=== PATIENT | female | born 1995 | race Caucasian/White ===

== ENCOUNTER 2016-08-20 07:47 | Emergency (ER) | payer OTHER ==
[~2016-08-20] VITALS: Ht 144.8 cm; Wt 55.5 kg
[~2016-08-20 07:47] MED LIST: ADRENACLICK1 MG/ML IM; ATIVAN 0.50.5 MG/TAB PO; BCP TD; CEPHALEXIN500 M1 PO; DOXYCYCLINE 10100 MG PO; LEXAPRO 10MG10 MG PO; LEXAPRO20 MG PO; LOMOTIL 0.025 M1 TAB PO; MONONESSA 35 MC1 TA1 PO; PEN-VEE K500 MG PO; PHENERGAN 25 TA25 MG PO; PHENERGAN25 MG RC; PREDNISONE20 MG PO; PROVENTIL0.09 MG/A1 IH; RANITIDINE150 MG PO; SINGULAIR10 MG PO; WELLBUTRIN 100100 MG PO; ZOFRAN 4MG T4 MG/TAB PO; ZYRTEC 10MG10 MG PO
[2016-08-20 07:48] VITALS: BP 131/73
[2016-08-20] MEDS ORDERED: BENADRYL25 M2 PO (08:35)
[2016-08-20] MEDS ORDERED: ZOFRAN ODT4 MG PO (09:20)
[2016-08-20] MEDS ORDERED: PHENERGAN W/CO120 M1 PO (09:20)
[2016-08-20 10:20] VITALS: PULSE 80; TEMP 98.2
== END 2016-08-20 09:48 | disposition home or self-care (01) ==
LOC: COL.ER 07:47
DX: J11.1 Influenza due to unidentified influenza virus with other respiratory manifestations (principal)
CPT/HCPCS: J1885; J2405; J7030

== ENCOUNTER 2017-07-22 11:07 | Emergency (ER) | payer OTHER ==
[~2017-07-22] VITALS: Ht 144.8 cm; Wt 58.2 kg
[~2017-07-22 11:07] MED LIST changes: +BENADRYL25 M2 PO; +PHENERGAN W/CO120 M1 PO; +SINGULAIR 110 MG/TAB PO; -SINGULAIR10 MG PO; +ZOFRAN ODT4 MG PO
[2017-07-22 11:17] VITALS: TEMP 98.8
[2017-07-22 13:00] LABS: BASO # 0.1 (0.0-0.2); BASO % 0.8 % (0.0-2.0); EOS # 0.3 (0.0-0.7); EOS % 4.5 % (0-4.0); GRAN % 61.5 % (42.2-75.2); HEMATOCRIT 40.6 % (37.0-47.0); HEMOGLOBIN 13.3 g/dl (12.5-16.0); LYMPH # 1.8 (1.2-3.4); LYMPH % 27.1 % (20.0-51.0); MEAN CELL VOLUME 91 fl (80.0-100.0); MEAN CORPUSCULAR HEMOGLOBIN 30 pg (27.0-31.0); MEAN CORPUSCULAR HGB CONC 33 g/dl (33.0-37.0); MEAN PLATELET VOLUME 10.1 fl (7.4-10.4); MONO # 0.4 (0.1-0.6); MONO % 5.9 % (1.7-9.3); PLATELET COUNT 265 K/mm3 (130-400); RED BLOOD COUNT 4.48 M/mm3 (4.10-5.30); REDCELL DISTRIBUTION WIDTH-CV 12.8 % (11.5-14.5)
[2017-07-22 13:10] LABS: ALBUMIN 4.3 gm/dL (3.5-5.0); BILIRUBIN,TOTAL 0.4 mg/dL (0.0-1.0); CALCIUM 9.1 mg/dL (8.4-10.2); CREATININE, serum 0.93 mg/dL (0.52-1.25); POTASSIUM 4.1 mmol/L (3.4-5.0); TOTAL PROTEIN 6.9 gm/dL (6.4-8.2)
[2017-07-22 13:34] LABS: HIV 1/2 Antibodies Non-Reactive; HIV-1p24 Antigen Non-Reactive
[2017-07-22 15:08] VITALS: BP 117/65; PULSE 67
[2017-07-22 23:30] LABS: HEPATITIS B SURFACE ANTIBODY 2.7 (())
== END 2017-07-22 15:24 | disposition home or self-care (01) ==
LOC: COL.ER 11:07
PROVIDERS: Emergency Medicine
DX: Z04.41 Encounter for examination and observation following alleged adult rape (principal); Z91.010 Allergy to peanuts; Z88.2 Allergy status to sulfonamides; Z91.018 Allergy to other foods; Y92.039 Unspecified place in apartment as the place of occurrence of the external cause
CPT/HCPCS: J0696

== ENCOUNTER 2018-04-08 08:11 | Outpatient (RCR) | payer OTHER | END 2018-06-09 | disposition home or self-care (01) | LOC: WSOH | DX: S16.1XXA Strain of muscle, fascia and tendon at neck level, initial encounter (principal); R07.89 Other chest pain; M54.5 Low back pain; R51 Headache; R42 Dizziness and giddiness; V89.2XXA Person injured in unspecified motor-vehicle accident, traffic, initial encounter; Y92.410 Unspecified street and highway as the place of occurrence of the external cause; Y99.0 Civilian activity done for income or pay; Z79.899 Other long term (current) drug therapy ==

== ENCOUNTER 2021-11-05 21:41 | Emergency (ER) | payer OTHER, BC ==
[~2021-11-05] VITALS: Ht 144.8 cm; Wt 63.6 kg
[2021-11-05 21:54] VITALS: TEMP 98.1
[2021-11-05] MEDS ORDERED: NORCO 325 MG-51 TAB PO (23:18)
[2021-11-05 23:38] VITALS: BP 112/69; PULSE 76
== END 2021-11-05 23:38 | disposition home or self-care (01) ==
LOC: COL.ER 21:41
DX: S09.90XA Unspecified injury of head, initial encounter (principal); M54.6 Pain in thoracic spine; R07.89 Other chest pain; Z28.310 Unvaccinated for COVID-19; V49.9XXA Car occupant (driver) (passenger) injured in unspecified traffic accident, initial encounter; Y92.410 Unspecified street and highway as the place of occurrence of the external cause